=== PATIENT | female | born 1965 | race Caucasian/White ===

== ENCOUNTER 2017-05-26 07:33 | Emergency (ER) | payer MEDICAID ==
[~2017-05-26] VITALS: Ht 162.6 cm; Wt 111.4 kg
[2017-05-26] MEDS ORDERED: HYDROCODONE/ACETAMINOPHEN 5-325 MG TABLET PO ONE (08:00)
[2017-05-26 09:29] VITALS: BP 151/83
== END 2017-05-26 09:39 | disposition home or self-care (01) ==
LOC: EMS 07:35
DX: S82.61XA Displaced fracture of lateral malleolus of right fibula, initial encounter for closed fracture (principal); W19.XXXA Unspecified fall, initial encounter; Y93.89 Activity, other specified; Y92.89 Other specified places as the place of occurrence of the external cause; Y99.8 Other external cause status
CPT/HCPCS: 29515; 99284

== ENCOUNTER 2018-12-26 20:48 | Emergency (ER) | payer MEDICAID ==
[~2018-12-26] VITALS: Ht 162.6 cm; Wt 113.6 kg
[2018-12-26 22:30] VITALS: BP 132/79
[2018-12-26] MEDS ORDERED: CARISOPRODOL 350 MG TABLET PO ONE (22:45)
[2018-12-26] MEDS ORDERED: KETOROLAC TROMETHAMINE 60 MG/2 ML VIAL IM ONE (22:45)
== END 2018-12-26 22:48 | disposition home or self-care (01) ==
LOC: EMS 20:48
DX: G44.209 Tension-type headache, unspecified, not intractable (principal)
CPT/HCPCS: 96372; 99283; J1885

== ENCOUNTER 2019-06-20 14:21 | Emergency (ER) | payer MEDICAID ==
[~2019-06-20] VITALS: Ht 162.6 cm; Wt 90.9 kg
[2019-06-20 17:07] VITALS: BP 143/82
== END 2019-06-20 17:10 | disposition home or self-care (01) ==
LOC: EMS 14:22
DX: S70.11XA Contusion of right thigh, initial encounter (principal); R03.0 Elevated blood-pressure reading, without diagnosis of hypertension; Z90.49 Acquired absence of other specified parts of digestive tract; Z98.890 Other specified postprocedural states; W22.8XXA Striking against or struck by other objects, initial encounter; Y93.89 Activity, other specified; Y92.89 Other specified places as the place of occurrence of the external cause; Y99.8 Other external cause status

== ENCOUNTER 2025-03-12 10:45 | Emergency (ER) | payer MEDICAID, OTHER ==
[~2025-03-12] VITALS: Ht 160 cm; Wt 93.0 kg
[2025-03-12 10:58] VITALS: TEMP 97.5
[2025-03-12] MEDS: ACETAMINOPHEN 500 MG TABLET PO ONE (11:16)
[2025-03-12] MEDS: IBUPROFEN 600 MG TABLET PO ONE (11:16)
[2025-03-12] MEDS ORDERED: IBUP-1492 PO (12:03)
[2025-03-12] MEDS ORDERED: ACET-3385 PO (12:03)
[2025-03-12] MEDS: OxyCODONE HCL 5 MG IR TABLET PO ONE (12:26)
[2025-03-12 12:34] VITALS: BP 124/81; PULSE 74; RESP 18; O2SAT 99
== END 2025-03-12 13:02 | disposition home or self-care (01) ==
LOC: EMS 10:50
DX: S82.62XA Displaced fracture of lateral malleolus of left fibula, initial encounter for closed fracture (principal); I10 Essential (primary) hypertension; Z90.49 Acquired absence of other specified parts of digestive tract; Z98.890 Other specified postprocedural states; W19.XXXA Unspecified fall, initial encounter; Y93.89 Activity, other specified; Y92.481 Parking lot as the place of occurrence of the external cause; Y99.8 Other external cause status
CPT/HCPCS: 29515; 99284; 73562-TC; 73590-TC; 73610-TC; Z7502; Z7610